=== PATIENT | male | born 1960 | race African-American/Black ===

== ENCOUNTER → 2023-02-11 | Day surgery (SDC) | payer MEDICAID ==
[~2023-02-11] VITALS: Ht 188 cm; Wt 81.6 kg
[~2023-02-11] MED LIST: ASPI-1497 PO; ATOR-2 PO; BUPIVACAINE HCL 0.5% 125 ML in ON-Q PM012 DRUG DELIV DEVICE 1 EA IR SCH; BUPIVACAINE HCL/PF 0.5% (5MG/ML) 30ML ONE; CEFAZOLIN SODIUM 1000MG/VIAL ONE; CLINDAMYCIN IN 0.9 % SOD CHLOR 50 ML IV ONE; DEXAMETHASONE 4MG/ML 1ML VIAL ONE; FENTANYL CITRATE/PF 50MCG/ML 2ML VIAL ONE; FURO20TA4 PO; GLYCOPYRROLATE 0.2 MG/ML 2ML VIAL ONE; HYDR100T26 PO; HYDROMORPHONE HCL/PF 2MG/ML CPJ IV PRN; HYDROMORPHONE HCL/PF 2MG/ML CPJ ONE; ISOS30TA91 MT; LABETALOL 5MG/ML SYR 20 MG/4 ML SYRINGE IV PRN; LIDOCAINE HCL 1% 10 MG/ML 10ML VIAL ONE; METO-411 PO; MIDAZOLAM HCL 2 MG/2 ML VIAL ONE; NEOSTIGMINE METHYLSULFATE 1MG/ML 10 ML VIAL ONE; NIFE30TA94 PO; ONDANSETRON HCL 4MG/2ML INJ IV PRN; ONDANSETRON HCL 4MG/2ML INJ ONE; PROPOFOL 200MG/20ML VIAL IV ONE; ROCURONIUM BROMIDE 10MG/ML VIAL 5ML IV ONE; SKIN ADHESIVE 0.7 GM EA TOP ONE; SODIUM CHLORIDE 0.9% 500 ML IV ONE; SUCCINYLCHOLINE CHLORIDE 200MG/10ML IV ONE; TAMS-11 PO
[2023-02-11] MEDS: MEPERIDINE HCL/PF 25MG/ML CPJ IV PRN ×2 (10:10→10:30)
[2023-02-11 10:30] VITALS: BP 180/89
== END | disposition home or self-care (01) ==
LOC: OR 05:51
PROVIDERS: ATTEND Surgery
DX: K40.90 Unilateral inguinal hernia, without obstruction or gangrene, not specified as recurrent (principal); I12.0 Hypertensive chronic kidney disease with stage 5 chronic kidney disease or end stage renal disease; N18.6 End stage renal disease; I25.10 Atherosclerotic heart disease of native coronary artery without angina pectoris; E78.00 Pure hypercholesterolemia, unspecified; F32.9 Major depressive disorder, single episode, unspecified; Z79.899 Other long term (current) drug therapy; Z98.890 Other specified postprocedural states; Z20.822 Contact with and (suspected) exposure to COVID-19; Z79.82 Long term (current) use of aspirin; Z88.0 Allergy status to penicillin; Z88.8 Allergy status to other drugs, medicaments and biological substances
CPT/HCPCS: 49505; 87426; C1781; C9803; J0330; J0690; J1100; J1170; J2175; J2250; J2405; J2704; J2710; J3010; J3490